=== PATIENT | female | born 1930 | race Caucasian/White ===

== ENCOUNTER 2018-09-20 18:49 | Emergency (ER) | payer MEDICARE ==
[~2018-09-20] VITALS: Ht 152.4 cm; Wt 90.9 kg
[~2018-09-20 18:49] MED LIST: ALBU8HFA PO; ASPI-611 PO; GUAI120L55 PO; LEVO75TA7 PO; LISI40TA4 PO; LOVA20TA2 PO; OMEP40CA37 PO; POTA10TA15 PO
[2018-09-20] MEDS ORDERED: HYDROcodone/acetaminophen 5mg/325mg tablet PO ONE (19:00)
--- NOTE | 2018-09-20 19:07 | NUR ---
XRay at bedside
[2018-09-20] MEDS ORDERED: DOCU-28 PO (19:42)
[2018-09-20] MEDS ORDERED: TRAM50TA2 PO (19:42)
[2018-09-20 20:16] VITALS: BP 170/92
== END 2018-09-20 20:18 | disposition home or self-care (01) ==
LOC: ER 18:50
DX: S83.012A Lateral subluxation of left patella, initial encounter (principal); E78.00 Pure hypercholesterolemia, unspecified; I10 Essential (primary) hypertension; E03.9 Hypothyroidism, unspecified; Z88.0 Allergy status to penicillin; Z79.82 Long term (current) use of aspirin; Z79.899 Other long term (current) drug therapy; X50.1XXA Overexertion from prolonged static or awkward postures, initial encounter; Y93.89 Activity, other specified; Y92.89 Other specified places as the place of occurrence of the external cause; Y99.9 Unspecified external cause status
CPT/HCPCS: 27560; 73564; 99284